=== PATIENT | female | born 1960 | race Caucasian/White ===

== ENCOUNTER → 2020-05-30 | Outpatient (CLI) | payer OTHER | LOC: KOH-I 15:40 | DX: R60.9 Edema, unspecified (principal); R06.02 Shortness of breath; M25.561 Pain in right knee; M25.562 Pain in left knee; Z79.890 Hormone replacement therapy; R91.8 Other nonspecific abnormal finding of lung field | CPT/HCPCS: 71046 ==

== ENCOUNTER → 2020-06-02 | Outpatient (CLI) | payer OTHER | LOC: KOH-I 11:30 | DX: R91.8 Other nonspecific abnormal finding of lung field (principal) | CPT/HCPCS: 71250 ==

== ENCOUNTER → 2020-06-12 | Outpatient (CLI) | payer OTHER | LOC: EXRD 10:30 | DX: Z13.820 Encounter for screening for osteoporosis (principal); N95.1 Menopausal and female climacteric states; M81.0 Age-related osteoporosis without current pathological fracture | CPT/HCPCS: 77080 ==

== ENCOUNTER → 2020-06-23 | Outpatient (CLI) | payer OTHER | LOC: HEART 5 10:53 | DX: R06.02 Shortness of breath (principal) | CPT/HCPCS: 94010; 94729 ==